=== PATIENT | female | born 1965 | race Caucasian/White ===

== ENCOUNTER 2024-10-29 14:48 | Outpatient (REF) | payer OTHER, SELFPAY ==
[2024-10-29 17:50] LABS: Appearance Urine Cloudy; Color Urine Yellow; Glucose Urine UA Negative (Negative); Leukocyte Esterase Urine Moderate (2+) (Negative); Nitrite Urine Negative (Negative); PH 5.5 (5.0-9.0); UMIC TRIGGER UACC YES; Urine Blood Large (3+) (Negative); Urine Ketones Negative (Negative); Urine Protein 30 (1+) mg/dL (Neg-Trace)
[2024-10-29 17:59] LABS: Bacteria Urine None Seen (None Seen); Hyaline Casts Urine 0-2 /LPF (0-2); RBC Urine >20 /HPF (0-2); Squamous Epithelial Cell Urine 0-2 /HPF (0-2); UACC Culture Trigger YES; WBC Urine >50 /HPF (0-5)
== END 2024-10-29 14:49 | disposition home or self-care (01) ==
LOC: HO.LAB 14:48
PROVIDERS: Visit Provider Nurse Practitioner Family
DX: N39.0 Urinary tract infection, site not specified (principal); B96.1 Klebsiella pneumoniae [K. pneumoniae] as the cause of diseases classified elsewhere
CPT/HCPCS: 81001; 81003; 87086; 87088; 87186

== ENCOUNTER 2024-10-29 14:48 | Outpatient (AMB) | payer OTHER, SELFPAY ==
--- NOTE | 2024-10-29 14:56 | AM.OFFWIN_ITS ---
Intake Vital Signs 10/29/24 15:06 Height 4 ft 11 in Weight 154 lb 8 oz BMI 31.2 BP 123/63 Blood Pressure Location Rt brachial Position Sitting Respiration 16 Pulse 91 Pulse Source Pulse Oximeter Temp 96.8 F Temp Source Temporal Artery Scan Pulse Oximetry (%) 99 Oxygen Delivery Method Room Air Intake Visit Reasons: possible uti Intake Note: patient here c/o possible UTI Patient Tobacco Use Status: Former Tobacco user Script Developer Required: No Is last menstrual period known: No Post menopausal: No Patient : No Allergies No Known Allergies Allergy (Verified 10/29/24 15:28) Medication List - Last Reconciled 10/29/24 by Virgil Aden CNP aspirin 81 mg PO DAILY atorvastatin 80 mg PO DAILY citalopram 20 mg PO DAILY levothyroxine 125 mcg PO DAILY metformin ER 1,000 mg PO BID semaglutide (Ozempic) mg subcut Do you need a note to return to daycare/school/sports/work: No HPI HPI Comments History of Present Illness Details The patient is a 58-year-old female presenting with dysuria, urinary frequency, and spotting. The patient reports that the symptoms commenced this morning. She describes experiencing pressure when urinating, accompanied by a reduced urine output despite the increased urge to urinate. Additionally, she reports spotting, which she finds unusual as it has not occurred in approximately 15 years. There is a mild burning sensation during urination. There is no noted fever, chills, or general malaise. PFSH Social History Patient Tobacco Use Status: Former Tobacco user Patient : No Review of Systems Const Details: Denies chills, Denies fatigue, Denies fever(s), Denies headache(s) and Denies weakness Cardiac Denies chest pain, Denies claudication, Denies leg edema, Denies lightheadedness, Denies palpitations, Denies dyspnea, Denies dyspnea on exertion, Denies orthopnea and Denies other (Loss of consciousness) Resp Denies cough, Denies excessive phlegm production, Denies dyspnea, Denies dyspnea on exertion, Denies snoring and Denies wheezing Reports as per HPI Physical Exam Vital Signs: Last Vital Signs Temp 96.8 F 10/29/24 15:06 Pulse 91 10/29/24 15:06 Resp 16 10/29/24 15:06 BP 123/63 10/29/24 15:06 Pulse Ox 99 10/29/24 15:06 Oxygen Delivery Method Room Air 10/29/24 15:06 BMI result Body Mass Index 31.2 Const Other: General: comfortable and no acute distress Orientation/consciousness: patient oriented x3 Chest Chest palpation & inspection: normal inspection of the chest Resp Auscultation: clear to auscultation bilaterally Cardiac Palpation: normal PMI Heart sounds: S1 normal heart sound present, S2 normal heart sound present, no gallops, no murmur, no rubs Mild suprapubic discomfort with palpation. No CVA tenderness. Assessment & Plan Assessment & Plan (1) UTI (urinary tract infection): Code(s): N39.0 - Urinary tract infection, site not specified Plan: A urine dip performed shows white blood cells, a significant amount of blood, and some protein, suggestive of a urinary tract infection. Initiate treatment with Macrobid nitrofurantoin) 100 mg twice daily for five days. Encourage the patient to increase fluid intake to assist with symptom management. A urine culture will be sent to confirm susceptibility to the prescribed antibiotic, and the patient will be contacted if an adjustment is necessary. If symptoms worsen or persist, the patient should return for further evaluation. Patient was informed and verbally consented to the use of an ambient scribe for clinic note documentation during this visit. (2) Spotting: Code(s): N92.0 - Excessive and frequent menstruation with regular cycle Plan: Follow up with PCP or financial management if spotting persist or worsens. Patient verbalizes understanding and agrees with the plan. Orders: Orders AMB Urinalysis Automated Today Z13.9 - Encounter for screening, unspecified UA CC w/rflx Micro + Cult Today N39.0 - Urinary tract infection, site not specified Medications: New nitrofurantoin monohyd/m-cryst 100 mg (Macrobid) must administer with a meal/food 100 mg PO BID 5 days 10 caps 0RF Coding Level of Care Code New Pt Level 3 (96527) Diagnoses UTI (urinary tract infection) N39.0 Spotting N92.0
[2024-10-29 15:06] VITALS: BP 123/63; PULSE 91; RESP 16; TEMP 36; O2SAT 99; BMI 31.2
== END 2024-10-29 15:50 | disposition home or self-care (01) ==
LOC: HO.HMCWIW 14:48
PROVIDERS: Visit Provider Nurse Practitioner Family
DX: N39.0 Urinary tract infection, site not specified (principal); N92.0 Excessive and frequent menstruation with regular cycle; Z13.9 Encounter for screening, unspecified